=== PATIENT | female | born 1960 | race Caucasian/White ===

== ENCOUNTER 2019-03-04 20:12 | Emergency (ER) | payer MEDICARE ==
--- NOTE | 2019-03-04 20:36 | Emergency Department Report ---
Blank Doc - Documentation Documentation: This is a 58-year-old female that presents with uncontrolled hyperglycemia. This initial assessment/diagnostic orders/clinical plan/treatment(s) is/are subject to change based on patient's health status, clinical progression and re- assessment by fellow clinical providers in the ED. Further treatment and workup at subsequent clinical providers discretion. Patient/guardians urged not to elope from the ED as their condition may be serious if not clinically assessed and managed. Initial orders include: 1- Patient sent to MAIN ED for further evaluation and treatment 2- labs 3- UA
[2019-03-04 21:58] LABS: Alanine Aminotransferase 32 units/L (7-56); BUN/Creatinine Ratio 20; Blood Urea Nitrogen 16 mg/dL (7-17); Hemolysis Index 4
[2019-03-04 22:02] LABS: Basophils % (Auto) 0.5 % (0.0-1.8); Eosinophils # (Auto) 0.2 K/mm3 (0.0-0.4); Eosinophils % (Auto) 2.1 % (0.0-4.3); Hematocrit 39.7 % (30.3-42.9); Hemoglobin 13.3 gm/dl (10.1-14.3); Lymphocytes # (Auto) 3.8 K/mm3 (1.2-5.4); Lymphocytes % (Auto) 44.6 % (13.4-35.0); Mean Corpuscular HGB Conc 34 % (30-34); Mean Corpuscular Volume 84 fl (79-97); Monocytes # (Auto) 0.5 K/mm3 (0.0-0.8); Monocytes % (Auto) 5.9 % (0.0-7.3); Platelet Count 277 K/mm3 (140-440); Red Blood Count 4.71 M/mm3 (3.65-5.03); Red Cell Distribution Width 13.4 % (13.2-15.2)
[2019-03-04] MEDS ORDERED: APRESOLINE IV ONE ×2 (22:04→23:49)
--- NOTE | 2019-03-04 22:06 | Emergency Department Report ---
HPI - General Chief Complaint: Hyperglycemia Time Seen by Provider: 03/04/19 20:35 - HPI HPI: 58-year-old female presents to the emergency department, sent in by her primary care physician Tin Pompa, for evaluation of hyperglycemia with com plaints of some fatigue and generalized weakness. Patient has a history of diabetes, hypertension, previous stroke, previous DVT and PE with Christine filter in place. She was evaluated by the PCP and found to have a blood sugar greater than 600 with some ketonuria. The patient also complains of some chronic left-sided numbness. This has been going on for at least the past month. She denies any focal weakness. She is ibr-jyufull-vvlfyqubi diabetic on metformin and says she has been compliant with her medications. She denies any headache, vision change, slurred speech. ED Past Medical Hx - Past Medical History Previous Medical History?: Yes Hx Hypertension: Yes Hx CVA: Yes (r deficit 2015) Hx Diabetes: Yes Hx Deep Vein Thrombosis: Yes (AYD FILTER 12/21/11) Hx Pulmonary Embolism: Yes Hx GERD: Yes (GASTRITIS 03/05;) Additional medical history: Anxiety, kidney stent, lung filter, Ady filter - Surgical History Past Surgical History?: Yes Additional Surgical History: Ureteral stent, ady filter. hemorroidectomy - Social History Smoking Status: Never Smoker - Medications Home Medications: Home Medications Medication Instructions Recorded Confirmed Last Taken Type Aspirin 325 mg PO DAILY 03/27/17 03/27/17 Unknown History metFORMIN [Glucophage] 500 mg PO BID 03/27/17 03/27/17 Unknown History Simvastatin (Nf) [Zocor TAB] 40 mg PO QHS #30 tablet 03/29/17 Unknown Rx cloNIDine [Catapres] 0.2 mg PO Q12H #60 tablet 03/29/17 Unknown Rx ED Review of Systems ROS: Stated complaint: DIABETES HIGH BP Other details as noted in HPI Comment: All other systems reviewed and negative Constitutional: weakness, other (fatigue). denies: chills, fever Eyes: denies: eye pain, vision change ENT: denies: ear pain, throat pain Respiratory: denies: cough, shortness of breath Cardiovascular: denies: chest pain, palpitations Gastrointestinal: denies: abdominal pain, vomiting Genitourinary: denies: dysuria, discharge Musculoskeletal: denies: back pain, arthralgia Skin: denies: rash, lesions Neurological: numbness (chronic left sided). denies: headache, weakness Physical Exam - Physical Exam Vital Signs: Vital Signs 03/04/19 20:37 Temperature 98.1 F Pulse Rate 73 Respiratory 18 Rate Blood Pressure 196/95 O2 Sat by Pulse 95 Oximetry Physical Exam: GENERAL: The patient is well-developed well-nourished. HENT: Normocephalic. Atraumatic. Patient has moist mucous membranes. EYES: Extraocular motions are intact. Pupils equal reactive to light bilaterally. NECK: Supple. Trachea is midline. CHEST/LUNGS: Clear to auscultation. There is no respiratory distress noted. HEART/CARDIOVASCULAR: Regular. There is no tachycardia. There is no murmur. ABDOMEN: Abdomen is soft, nontender. Patient has normal bowel sounds. There is no abdominal distention. SKIN: Skin is warm and dry. NEURO: The patient is awake, alert, and oriented. The patient is cooperative. No motor deficits. No facial asymmetry. Subjective decreased sensation to the left side of the face, arm and leg compared to the right. The patient has normal speech. Cranial nerves II through XII grossly intact. MUSCULOSKELETAL: There is no tenderness or deformity. There is no limitation range of motion. There is no evidence of acute injury. Muscle strength 5 out of 5 upper and lower extremities bilaterally. ED Course Vital Signs 03/04/19 20:37 Temperature 98.1 F Pulse Rate 73 Respiratory 18 Rate Blood Pressure 196/95 O2 Sat by Pulse 95 Oximetry ED Medical Decision Making - Lab Data Result diagrams: 03/04/19 01:45 03/04/19 21:24 - EKG Data -: EKG Interpreted by [facility] EKG shows normal: sinus rhythm, axis (left axis deviation), intervals, QRS complexes (left bundle branch block), ST-T waves Rate: normal - EKG Data When compared to previous EKG there are: no significant change Interpretation: unchanged when compared t (03/29/19) - Medical Decision Making This patient was sent in by her PCP after she was found to have a very elevated blood sugar and apparently some ketonuria. She had the symptoms of some fatigue and generalized weakness. On examination she has no signs of any focal, motor or sensory deficits in her cranial nerves are intact. In the emergency department, the patient does have hyperglycemia with a blood sugar of about 550 but she does not appear to be in diabetic ketoacidosis. There is no venous acidosis or elevated anion gap. The rest of her labs have been unremarkable. No ketonuria here. Given IV fluid and IV insulin and repeat blood sugar was down to 254. Overall the patient says that she is feeling improved with better control of her blood sugar. We discussed dietary changes to make the patient apparently has not been watching the amount of carbohydrates, starches and sugars that she has been consuming. This, along with her diabetes medication, should hopefully better control her blood sugar but she will continue keeping a blood sugar log. She has been instructed to follow-up with her primary care physician, Tin Pompa. She will return to the ER with any worsening of her symptoms or any acute distress. - Differential Diagnosis DKA, HHNK, Dysrythmia, UTI Critical Care Time: No Critical care attestation.: If time is entered above; I have spent that time in minutes in the direct care of this critically ill patient, excluding procedure time. ED Disposition Clinical Impression: Hyperglycemia Hypertension Qualifiers: Hypertension type: unspecified Qualified Code(s): I10 - Essential (primary) hypertension Disposition: DC-01 TO HOME OR SELFCARE Is pt being admited?: No Condition: Stable Instructions: Hypertension (ED), Diabetic Hyperglycemia (ED) Additional Instructions: Please follow-up with your primary care physician in the next few days. Try and stay away from foods that are high in carbohydrates, starches and sugars to help controlling her diabetes. Keep a blood sugar log. Take your normal diabetes medications as previously prescribed. Try and stay away from foods that are high in salt and caffeinated products to help with your blood pressure. Keep a blood pressure log. Take your normal hypertension medications as previously prescribed. Return to the emergency Department with any worsening of your symptoms or any acute distress. Referrals: TIN POMPA MD [Referring] - 2-3 Days Time of Disposition: 00:55 Print Language: TELUGU
[2019-03-04] MEDS ORDERED: APRESOLINE ONE ×2 (22:14→23:54)
[2019-03-04] MEDS ORDERED: HumuLIN R IV ONE (22:34)
[2019-03-04] MEDS ORDERED: HumuLIN R ONE (22:50)
[2019-03-04 23:17] LABS: RBC,Urine < 1.0 /HPF (0.0-6.0); WBC,Urine < 1.0 /HPF (0.0-6.0)
[2019-03-05 00:20] LABS: Bilirubin,Urine NEG (Negative); Blood,Urine SM (Negative); Color,Urine Straw (Yellow); Protein,Urine <15 mg/dL mg/dL (Negative); Urobilinogen,Urine < 2.0 mg/dL (<2.0)
[2019-03-05 01:38] VITALS: BP 246/73
--- NOTE | 2019-03-07 12:52 | Cat Scan Report ---
CT head without contrast INDICATION : Acute headache and weakness with past history of stroke. TECHNIQUE: Axial imaging performed from the skull apex through the skull base without the use of con trast. All CT scans at this location are performed using CT dose reduction for ALARA by means of aut omated exposure control. COMPARISON: CT head from 03/26/2017 FINDINGS: Parenchyma: No acute intracranial hemorrhage or parenchymal abnormality. There are scattered well-de fined hypodensities, notably in the right basal ganglia and the left frontal lobe consistent with branodn or infarcts. Periventricular hypodensities are present and may be seen with microangiopathy. Ventricles: Ventricles are normal in size and appear symmetric. Soft tissues: Soft tissues including the orbits appear normal. Bones: No acute osseous abnormality. Sinuses: Sinuses and mastoid air cells are clear. IMPRESSION: No acute abnormality. Chronic-appearing changes. Signer Name: Theron Reyes MD Signed: 03/04/2019 11:49 PM Workstation Name: [id number]
== END 2019-03-05 01:35 | disposition home or self-care (01) ==
LOC: ED 20:12
DX: E11.65 Type 2 diabetes mellitus with hyperglycemia (principal); I10 Essential (primary) hypertension; K21.9 Gastro-esophageal reflux disease without esophagitis; F41.9 Anxiety disorder, unspecified; Z86.711 Personal history of pulmonary embolism; Z86.718 Personal history of other venous thrombosis and embolism; Z90.89 Acquired absence of other organs; Z79.82 Long term (current) use of aspirin
CPT/HCPCS: 36415; 70450; 80053; 81001; 82805; 82962; 84443; 84484; 85025; 93005; 93010; 96374; 96375; 96376; 99284; J0360; J1815